=== PATIENT | female | born 1990 | race Caucasian/White ===

== ENCOUNTER 2018-09-22 19:45 | Emergency (ER) | payer OTHER ==
[2018-09-22 20:19] VITALS: BP 107/67; PULSE 89; TEMP 98.3
[2018-09-22 20:59] LABS: Appearance,Urine Clear (Clear); Basophils % (A) 1 %; Bilirubin,Urine Negative (Negative); Blood,Urine Negative (Negative); Color,Urine Light Yellow; Eosinophils # (A) 0.2 k/uL (0-0.7); Eosinophils % (A) 3 %; Glucose,Urine (UA) Negative (Negative); HCT 38.3 % (34.0-46.0); HGB 13.7 gm/dL (11.4-16.0); Ketones,Urine Negative (Negative); Leukocyte Esterase,Urine Negative (Negative); Lymphocytes # (A) 2.8 k/uL (1.0-4.8); Lymphocytes % (A) 38 %; MCH 30.6 pg (25.0-35.0); MCHC 35.7 g/dL (31.0-37.0); MCV 85.8 fL (80.0-100.0); Mean Platelet Volume 6.7; Monocytes # (A) 0.4 k/uL (0-1.0); Monocytes % (A) 6 %; Neutrophils # (A) 3.9 k/uL (1.3-7.7); Neutrophils % (A) 52 %; Nitrite,Urine Negative (Negative); Platelet Count 234 k/uL (150-450); Protein,Urine Negative (Negative); RBC 4.47 m/uL (3.80-5.40); RDW 12.4 % (11.5-15.5); Specific Gravity,Urine 1.013 (1.001-1.035); Urobilinogen,Urine <2.0 mg/dL (<2.0); WBC 7.5 k/uL (3.8-10.6)
[2018-09-22 21:07] LABS: ALT 27 U/L (9-52); AST 17 U/L (14-36); Albumin 4.9 g/dL (3.5-5.0); Alkaline Phosphatase 40 U/L (38-126); Amylase 73 U/L (30-110); Anion Gap 11 mmol/L; Blood Urea Nitrogen 19 mg/dL (7-17); Calcium 9.8 mg/dL (8.4-10.2); Carbon Dioxide 23 mmol/L (22-30); Chloride 106 mmol/L (98-107); Glucose 89 mg/dL (74-99); Lipase 95 U/L (23-300); Potassium 3.8 mmol/L (3.5-5.1); Sodium 140 mmol/L (137-145); Total Bilirubin 0.8 mg/dL (0.2-1.3); Total Protein 7.7 g/dL (6.3-8.2)
--- NOTE | 2018-09-22 21:50 | ED ---
Abdominal Pain HPI - General Chief Complaint: Abdominal Pain Stated Complaint: Abd and back pain Time Seen by Provider: 09/22/18 21:49 Source: patient Mode of arrival: ambulatory Limitations: no limitations - History of Present Illness Initial Comments: Brina is a previously healthy 28-year-old female presents to the emergency department today for evaluation of epigastric abdominal pain. Patient reports that she's been experiencing epigastric abdominal pain for approximately 2 years duration, she is prescribed Zantac from her primary care, she has been referred to gastroenterology but has been unable to follow-up. She reports that she usually attributes her pain to acid reflux however today the pain is been very severe, feels like burning and pressure in her epigastrium radiating to her back. Pain is not associated with nausea, vomiting, fever, chills, chest pain or shortness of breath. Patient denies alcohol intake. She denies any history of gallstones or pancreatitis. She denies any abdominal trauma. She admits to having a poor diet including eating fatty and fried foods frequently. - Related Data Home Medications Medication Instructions Recorded Confirmed No Known Home Medications 08/02/14 09/22/18 Allergies Allergy/AdvReac Type Severity Reaction Status Date / Time Penicillins Allergy Unknown Verified 09/22/18 21:55 Childhood sulfamethoxazole Allergy PARALYSIS Verified 09/22/18 21:55 [From Bactrim] trimethoprim [From Bactrim] Allergy PARALYSIS Verified 09/22/18 21:55 Review of Systems ROS Statement: Those systems with pertinent positive or pertinent negative responses have been documented in the HPI. ROS Other: All systems not noted in ROS Statement are negative. Past Medical History Past Medical History: GERD/Reflux History of Any Multi-Drug Resistant Organisms: None Reported Past Surgical History: Appendectomy Additional Past Surgical History / Comment(s): ovary removed Past Psychological History: No Psychological Hx Reported Smoking Status: Never smoker Past Alcohol Use History: None Reported Past Drug Use History: None Reported General Exam - General Exam Comments Initial Comments: Physical Exam GENERAL: Patient is well-developed and well-nourished. Patient is nontoxic and well- hydrated and is in no distress. HENT: Normocephalic, Atraumatic. EYES: PERRL, EOMI PULMONARY: Unlabored respirations. No audible rales rhonchi or wheezing was noted. CARDIOVASCULAR: There is a regular rate and rhythm without any murmurs gallops or rubs. ABDOMEN: Soft with normal bowel sounds. Mild tenderness to palpation in the epigastrium SKIN: Skin is clear with no lesions or rashes and otherwise unremarkable. : Deferred NEUROLOGIC: Patient is alert and oriented x3. Moving all extremities spontaneously MUSCULOSKELETAL: Normal extremities with adequate strength and full range of motion. No lower extremity swelling or edema. No calf tenderness. PSYCHIATRIC: Normal psychiatric evaluation. Limitations: no limitations Limitations: no limitations Course Vital Signs 09/22/18 20:16 Temperature 98.3 F Pulse Rate 89 Respiratory 18 Rate Blood Pressure 107/67 O2 Sat by Pulse 100 Oximetry Medical Decision Making - Medical Decision Making Patient's laboratory obtained for advanced triage protocol Patient was seen and evaluated after labs resulted patient was advised of the normal findings Patient insisting on imaging, chest x-ray as well as abdominal ultrasound were ordered GI cocktail was given with mild improvement in patient's symptoms Ultrasound reveals a 2 cm gallstone with normal bile duct, no evidence of acute cholecystitis Chest x-ray unremarkable Results were discussed with the patient, treatment was discussed, have a high suspicion the patient's symptoms are secondary to acid reflux or gastritis. I advised multiple small meals throughout the day of weight in severity C or greasy foods. In addition gallstone precautions and biliary colic were discussed. Patient was referred to gastroenterology as well as general surgery for outpatient follow-up. Return parameters were discussed patient was discharged home in stable condition. - Lab Data Result diagrams: 09/22/18 20:40 09/22/18 20:40 Lab Results 09/22/18 09/22/18 09/22/18 Range/Units 20:40 20:40 20:40 WBC 7.5 (3.8-10.6) k/uL RBC 4.47 (3.80-5.40) m/uL Hgb 13.7 (11.4-16.0) gm/dL Hct 38.3 (34.0-46.0) % MCV 85.8 (80.0-100.0) fL MCH 30.6 (25.0-35.0) pg MCHC 35.7 (31.0-37.0) g/dL RDW 12.4 (11.5-15.5) % Plt Count 234 (150-450) k/uL Neutrophils % 52 % Lymphocytes % 38 % Monocytes % 6 % Eosinophils % 3 % Basophils % 1 % Neutrophils # 3.9 (1.3-7.7) k/uL Lymphocytes # 2.8 (1.0-4.8) k/uL Monocytes # 0.4 (0-1.0) k/uL Eosinophils # 0.2 (0-0.7) k/uL Basophils # 0.0 (0-0.2) k/uL Sodium 140 (137-145) mmol/L Potassium 3.8 (3.5-5.1) mmol/L Chloride 106 (98-107) mmol/L Carbon Dioxide 23 (22-30) mmol/L Anion Gap 11 mmol/L BUN 19 H (7-17) mg/dL Creatinine 0.52 (0.52-1.04) mg/dL Est GFR (CKD-EPI)AfAm >90 (>60 ml/min/1.73 sqM) Est GFR (CKD-EPI)NonAf >90 (>60 ml/min/1.73 sqM) Glucose 89 (74-99) mg/dL Calcium 9.8 (8.4-10.2) mg/dL Total Bilirubin 0.8 (0.2-1.3) mg/dL AST 17 (14-36) U/L ALT 27 (9-52) U/L Alkaline Phosphatase 40 (38-126) U/L Total Protein 7.7 (6.3-8.2) g/dL Albumin 4.9 (3.5-5.0) g/dL Amylase 73 (30-110) U/L Lipase 95 (23-300) U/L Urine Color Urine Appearance (Clear) Urine pH (5.0-8.0) Ur Specific Dalton (1.001-1.035) Urine Protein (Negative) Urine Glucose (UA) (Negative) Urine Ketones (Negative) Urine Blood (Negative) Urine Nitrite (Negative) Urine Bilirubin (Negative) Urine Urobilinogen (<2.0) mg/dL Ur Leukocyte Esterase (Negative) Urine HCG, Qual Not Detected (Not Detectd) 09/22/18 Range/Units 20:40 WBC (3.8-10.6) k/uL RBC (3.80-5.40) m/uL Hgb (11.4-16.0) gm/dL Hct (34.0-46.0) % MCV (80.0-100.0) fL MCH (25.0-35.0) pg MCHC (31.0-37.0) g/dL RDW (11.5-15.5) % Plt Count (150-450) k/uL Neutrophils % % Lymphocytes % % Monocytes % % Eosinophils % % Basophils % % Neutrophils # (1.3-7.7) k/uL Lymphocytes # (1.0-4.8) k/uL Monocytes # (0-1.0) k/uL Eosinophils # (0-0.7) k/uL Basophils # (0-0.2) k/uL Sodium (137-145) mmol/L Potassium (3.5-5.1) mmol/L Chloride (98-107) mmol/L Carbon Dioxide (22-30) mmol/L Anion Gap mmol/L BUN (7-17) mg/dL Creatinine (0.52-1.04) mg/dL Est GFR (CKD-EPI)AfAm (>60 ml/min/1.73 sqM) Est GFR (CKD-EPI)NonAf (>60 ml/min/1.73 sqM) Glucose (74-99) mg/dL Calcium (8.4-10.2) mg/dL Total Bilirubin (0.2-1.3) mg/dL AST (14-36) U/L ALT (9-52) U/L Alkaline Phosphatase (38-126) U/L Total Protein (6.3-8.2) g/dL Albumin (3.5-5.0) g/dL Amylase (30-110) U/L Lipase (23-300) U/L Urine Color Light Yellow Urine Appearance Clear (Clear) Urine pH 6.0 (5.0-8.0) Ur Specific Dalton 1.013 (1.001-1.035) Urine Protein Negative (Negative) Urine Glucose (UA) Negative (Negative) Urine Ketones Negative (Negative) Urine Blood Negative (Negative) Urine Nitrite Negative (Negative) Urine Bilirubin Negative (Negative) Urine Urobilinogen <2.0 (<2.0) mg/dL Ur Leukocyte Esterase Negative (Negative) Urine HCG, Qual (Not Detectd) Disposition Clinical Impression: Abdominal pain Disposition: HOME SELF-CARE Condition: Stable Instructions (If sedation given, give patient instructions): Biliary Colic (ED) , Abdominal Pain (ED) Is patient prescribed a controlled substance at d/c from ED?: No Referrals: Scotty Pollack MD [Primary Care Provider] - 1-2 days Gavino Bartlett MD [STAFF PHYSICIAN] - 1-2 days Anjali Ortiz MD [STAFF PHYSICIAN] - 1-2 days Evelyn Darby MD [STAFF PHYSICIAN] - 1-2 days Time of Disposition: 01:49
[2018-09-22] MEDS ORDERED: MAG HYDROX/AL HYDROX/SIMETH 30 ML, HYOSCYAMINE ELIXIR 10 ML, CIMETIDINE HCL 300 MG, LID... PO STA ×4 (23:06)
--- NOTE | 2018-09-22 23:23 | XR ---
EXAM: XR Abdomen, 1 View CLINICAL HISTORY: Pain TECHNIQUE: Frontal upright view of the abdomen/pelvis. COMPARISON: No relevant prior studies available. FINDINGS: Gastrointestinal tract: Nonspecific bowel gas pattern. No dilation. Bones/joints: Unremarkable. IMPRESSION: Nonspecific bowel gas pattern
--- NOTE | 2018-09-23 00:41 | US ---
EXAM: US Abdomen Limited, Right Upper Quadrant CLINICAL HISTORY: Pain TECHNIQUE: Real-time ultrasound of the right upper quadrant with image documentation. COMPARISON: No relevant prior studies available. FINDINGS: Liver: Liver measures 15.3 cm longitudinally. No intrahepatic bile duct dilation. Gallbladder: 2 cm stone in the fundus of the gallbladder. No sonographic Escalante sign. Common bile duct: Common bile duct measures 3 mm in maximal diameter. No stones. No dilation. Pancreas: Unremarkable as visualized. Right kidney: Right kidney measures 10.3 x 3.6 x 3.7 cm. No stones. No hydronephrosis. IMPRESSION: 2 cm stone in fundus of gallbladder.
[2018-09-23 02:51] VITALS: RESP 17
== END 2018-09-23 02:20 | disposition home or self-care (01) ==
LOC: EC 19:45
DX: R10.13 Epigastric pain (principal); K80.80 Other cholelithiasis without obstruction; Z32.02 Encounter for pregnancy test, result negative; Z88.0 Allergy status to penicillin; Z88.1 Allergy status to other antibiotic agents; Z88.2 Allergy status to sulfonamides; Z90.89 Acquired absence of other organs
CPT/HCPCS: 36415; 74018; 76705; 80053; 81003; 81025; 82150; 83690; 85025; 93005; 99284

== ENCOUNTER → 2024-11-04 | Outpatient (CLI) | payer OTHER ==
--- NOTE | 2024-11-04 09:58 | FL ---
EXAMINATION TYPE: FL barium swallow DATE OF EXAM: 11/04/2024 COMPARISON: CLINICAL INDICATION: Female, 34 years old with history of R13.10 DYSPHAGIA N63.20 UNSPECIFIED LUMP IN THE LE; PHH, TECHNIQUE: A double contrast esophagram is performed utilizing air and barium. A total of 1 minute and 17 seconds of fluoroscopic time was utilized during procedure and 33 images obtained. Total dose area product (DAP) in uGy*m?, mGy*cm? (or similar) 362.64. COMPARISON: None FINDINGS: The esophagus shows normal motility and emptying into the stomach. No evidence of hiatal h ernia or stricture noted. No significant gastroesophageal reflux was seen during real time performanc e of this study. IMPRESSION: No significant abnormality is seen to account for patient's symptoms. If symptoms persi st consider direct visualization. [facility], , 11/04/2024 9:55 AM
--- NOTE | 2024-11-04 10:18 | MM ---
Reason for Exam: Clinical finding. Patient History: Menarche at age 14. First Full-Term at age 18. Hormonal Contraceptives for 1 year from age 16 until age 17. Maternal grandmother had breast cancer, age 34. Maternal grandmother had breast cancer. Maternal cousin had breast cancer. Maternal aunt had breast cancer. Tissue Density: The breasts are extremely dense, which lowers the sensitivity of mammography. Findings: Analyzed By CAD. The lobulated 7 mm nodular density in the central outer margin right breast approximately 2.4 cm from the nipple line. Over the area of left breast palpable there no definitive solid or cystic mass. Area of asymmetric tissue may be present. Ultrasound will be obtained. There are no suspicious microcalcifications. Overall Assessment: Incomplete: need additional imaging evaluation, BI-RAD 0 Management: Diagnostic Breast Ultrasound of both breasts. . Results were given to the patient verbally at the time of exam. Patient should continue monthly self-breast exams. A clinical breast exam by your physician is recommended on an annual basis. This exam should not preclude additional follow-up of suspicious palpable abnormalities. Note on Abby scores and lifetime risk: 1. A Abby score greater than 3% is considered moderate risk. If this is the case, consider specialist referral to assess eligibility for a risk reducing agent. 2. If overall lifetime risk for the development of breast cancer is 20% or higher, the patient may qualify for future screening with alternating mammogram and breast MRI. [facility], , 11/04/2024 10:15 AM. Electronically signed and approved by: Reynold Blake M.D. Radiologis
--- NOTE | 2024-11-04 10:42 | USB ---
Reason for Exam: Clinical finding. Patient History: Menarche at age 14. First Full-Term at age 18. Hormonal Contraceptives for 1 year from age 16 until age 17. Maternal grandmother had breast cancer, age 34. Maternal grandmother had breast cancer. Maternal cousin had breast cancer. Maternal aunt had breast cancer. Technique: Method: Targeted. Findings: The lateral section of the breast of the right breast, the area of palpable concern of the left breast, the axilla of both breasts and the retroareolar of both breasts were scanned. A targeted US of 9:00 position right breast, axilla and retro-areolar region were reviewed. Additional ultrasound targeted to the palpable abnormality left breast 5:00 position. There is a 5 mm lobulated hypoechoic nodule. Could represent a complicated cyst. Solid nodule not excluded recommend ultrasound FNA with possible core biopsy. Ultrasound the left breast demonstrates no solid or cystic nodule. Overall Assessment: Suspicious, BI-RAD 4 Management: Ultrasound Core Biopsy of the right breast. No sonographic abnormality seen overlying the area of palpable abnormality left breast. A biopsy of a clinically suspicious palpable lesion should not be deferred based on a negative mammogram or sonogram. A clinical breast exam by your physician is recommended on an annual basis and results should be correlated with mammographic findings. This exam should not preclude additional follow-up of suspicious palpable abnormalities. Results were given to the patient verbally at the time of exam. [facility], , 11/04/2024 10:40 AM. Electronically signed and approved by: Reynold Blake M.D. Radiologis
== END | disposition home or self-care (01) ==
LOC: RADFLMAIN 08:42
PROVIDERS: ATTEND Family Medicine
DX: R92.343 Mammographic extreme density, bilateral breasts (principal); N63.20 Unspecified lump in the left breast, unspecified quadrant; R13.10 Dysphagia, unspecified; Z80.3 Family history of malignant neoplasm of breast; Z92.0 Personal history of contraception
CPT/HCPCS: 74220; 77066; 76642; G0279; 77062

== ENCOUNTER → 2024-11-12 | Day surgery (SDC) | payer OTHER ==
--- NOTE | 2024-11-17 12:24 | USB ---
Prior Study Comparison: 11/04/2024 Bilateral US breast limited BILAT, [facility]. 11/04/2024 Bilateral MG 3D diag mammo w/cad [facility]. Pathology Description: Location: 9 o'clock. clip placed, hydromark butterfly The ultrasound guided cyst aspiration procedure was explained to the patient. The risks, benefits, alternatives were discussed. An informed consent was then obtained. The patient was placed in supine positioning for imaging and for the procedure. The overlying skin was prepped with betadine and sterilely draped in usual sterile fashion. 10 ml 1% lidocaine was used as anesthetic into the skin and deeper breast tissue up to area of concern in the right 9 o'clock breast, 3 cm from nipple. Under ultrasound guidance, an 18-gauge needle was advanced into the cyst and aspiration yielded .3 mL of mucinous fluid. The fluid was labeled and sent for laboratory analysis. A microclip was left in lesion. Good hemostasis was obtained with direct pressure. Impression: Successful ultrasound guided cyst aspiration right breast. Cytology pending. [facility], , 11/12/2024 2:39 PM. Pathology Results: Result: Benign. Pathology and radiology were reviewed. Findings are concordant. RIGHT BREAST, ASPIRATION: Hypocellular specimen with focal red blood cells present, non-diagnostic for neoplasia. Overall Assessment: Benign Management: Diagnostic Mammogram of the right breast in 6 months. Electronically signed and approved by: Garfield Sewell M.D. Radiologis
== END ==
LOC: RADUSWWP 07:11
PROVIDERS: ATTEND Family Medicine
DX: N63.10 Unspecified lump in the right breast, unspecified quadrant (principal)
CPT/HCPCS: 88305; 88173; 76942; 19000; A4648